=== PATIENT | male | born 1990 | race Two or more races ===

== ENCOUNTER 2017-01-25 13:00 | Emergency (ER) | payer MEDICAID ==
[~2017-01-25] VITALS: Ht 165.1 cm; Wt 79.4 kg
[2017-01-25 13:00] VITALS: BP 130/72
[2017-01-25] MEDS ORDERED: IBUPROFEN 600 MG TABLET PO ONE ×2 (13:30→13:32)
== END 2017-01-25 14:46 | disposition home or self-care (01) ==
LOC: ER 13:02
DX: S29.012A Strain of muscle and tendon of back wall of thorax, initial encounter (principal); S80.01XA Contusion of right knee, initial encounter; V43.52XA Car driver injured in collision with other type car in traffic accident, initial encounter; Y93.89 Activity, other specified; Y92.89 Other specified places as the place of occurrence of the external cause; Y99.9 Unspecified external cause status
CPT/HCPCS: 73564-TC; A4606; Z7610

== ENCOUNTER 2017-11-19 13:35 | Emergency (ER) | payer MEDICAID ==
[~2017-11-19] VITALS: Ht 152.4 cm; Wt 52.2 kg
[2017-11-19 13:39] VITALS: BP 133/79
[2017-11-19] MEDS ORDERED: IBUPROFEN 600 MG TABLET PO ONE ×2 (13:59→14:00)
[2017-11-19] MEDS ORDERED: HYDROCODONE/APAP 10/325MG 1 EA TABLET ONE (13:59)
[2017-11-19] MEDS ORDERED: HYDROCODONE/APAP 10/325MG 1 EA TABLET PO ONE (14:00)
--- NOTE | 2017-11-19 14:18 | NUR ---
XRAY AT BS
== END 2017-11-19 15:18 | disposition home or self-care (01) ==
LOC: ER 13:38
DX: S83.91XA Sprain of unspecified site of right knee, initial encounter (principal); X58.XXXA Exposure to other specified factors, initial encounter; Y93.01 Activity, walking, marching and hiking; Y92.832 Beach as the place of occurrence of the external cause; Y99.8 Other external cause status
CPT/HCPCS: 73562; A4606; Z7610

== ENCOUNTER 2017-11-26 21:56 | Emergency (ER) | payer MEDICAID ==
[~2017-11-26] VITALS: Ht 162.6 cm; Wt 72.6 kg
[2017-11-26 22:37] VITALS: BP 133/78
--- NOTE | 2017-11-27 01:24 | NUR ---
PT TO ER BED 09 VIA WC.
[2017-11-27] MEDS ORDERED: KETOROLAC TROMETHAMINE INJ 60 MG/2 ML VIAL IM ONE ×2 (01:30→01:34)
== END 2017-11-27 01:54 | disposition home or self-care (01) ==
LOC: ER 21:57
DX: M10.9 Gout, unspecified (principal)
CPT/HCPCS: 96372; 99283; A4606; J1885; Z7610

== ENCOUNTER 2017-11-28 02:11 | Emergency (ER) | payer MEDICAID ==
[~2017-11-28] VITALS: Ht 157.5 cm; Wt 78.0 kg
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
--- NOTE | 2017-11-28 02:49 | NUR ---
PT REC'D AN ICE PACK AND LEFT FOR CT VIA [facility].
[2017-11-28] MEDS ORDERED: HYDROCODONE/APAP 5/325MG 1 EACH TABLET ONE (04:07)
--- NOTE | 2017-11-28 04:29 | NUR ---
Patient discharged to home in stable condition. Written and verbal after care instructions given. Patient verbalizes understanding of instruction. Patient ambulatory with a steady gait.
[2017-11-28 04:30] VITALS: BP 117/69
[2017-11-28] MEDS ORDERED: HYDROCODONE/APAP 5/325MG 1 EACH TABLET PO ONE (04:30)
== END 2017-11-28 04:31 | disposition home or self-care (01) ==
LOC: ER 02:11
DX: S06.9X1A Unspecified intracranial injury with loss of consciousness of 30 minutes or less, initial encounter (principal); Y04.2XXA Assault by strike against or bumped into by another person, initial encounter; Y93.89 Activity, other specified; Y92.89 Other specified places as the place of occurrence of the external cause; Y99.8 Other external cause status
CPT/HCPCS: 70450; 99284; A4606; Z7610

== ENCOUNTER 2018-03-05 12:54 | Emergency (ER) | payer MEDICAID ==
[~2018-03-05] VITALS: Ht 162.6 cm; Wt 74.8 kg
--- NOTE | 2018-03-05 13:13 | NUR ---
ERMD AT BEDSIDE
[2018-03-05] MEDS ORDERED: KETOROLAC TROMETHAMINE INJ 60 MG/2 ML VIAL IM ONE ×2 (13:14→13:30)
[2018-03-05 13:39] VITALS: BP 124/80
--- NOTE | 2018-03-05 13:46 | NUR ---
Patient discharged to home in stable condition. Written and verbal after care instructions given. Patient verbalizes understanding of instruction.
== END 2018-03-05 13:47 | disposition home or self-care (01) ==
LOC: ER 12:55
DX: M10.9 Gout, unspecified (principal)
CPT/HCPCS: 73610; 96372; 99284; A4606; J1885; Z7610

== ENCOUNTER 2021-07-15 09:22 | Emergency (ER) | payer MEDICAID ==
[~2021-07-15] VITALS: Ht 167.6 cm; Wt 83.9 kg
[2021-07-15 09:32] VITALS: BP 143/74
--- NOTE | 2021-07-15 09:45 | NUR ---
FROM HOME R THUMB PAIN AND SWELLING, SINCE TUESDAY. THROBING PAIN RADIATING UP THE ARM. PAIN SCALE 10 . NOT RELEIVED BY TYLENOL.
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
--- NOTE | 2021-07-15 10:00 | NUR ---
AWAITING EVALUATION BY ER PROVIDER.
[2021-07-15] MEDS ORDERED: IBUPROFEN 400 MG TABLET ONE (10:39)
[2021-07-15] MEDS: IBUPROFEN 400 MG TABLET PO ONE (10:41)
[2021-07-15] MEDS ORDERED: CLIN300C12 PO (11:26)
[2021-07-15] MEDS ORDERED: TDAP [DIPH/PERTUSSIS/TET] 0.5 ML VIAL IM ONE (11:35)
[2021-07-15] MEDS: TDAP [DIPH/PERTUSSIS/TET] 0.5 ML VIAL IM ONE (11:36)
--- NOTE | 2021-07-15 12:38 | NUR ---
Patient discharged to home in stable condition. Written and verbal after care instructions given. Patient verbalizes understanding of instruction.
== END 2021-07-15 12:39 | disposition home or self-care (01) ==
LOC: ER 09:24
DX: S61.001A Unspecified open wound of right thumb without damage to nail, initial encounter (principal); M10.9 Gout, unspecified; Z79.899 Other long term (current) drug therapy; W23.0XXA Caught, crushed, jammed, or pinched between moving objects, initial encounter; Y93.89 Activity, other specified; Y92.89 Other specified places as the place of occurrence of the external cause; Y99.8 Other external cause status
CPT/HCPCS: 73140-TC; 90715

== ENCOUNTER 2022-03-20 16:32 | Emergency (ER) | payer MEDICAID ==
[~2022-03-20] VITALS: Ht 157.5 cm; Wt 57.6 kg
[~2022-03-20 16:32] MED LIST: CLIN300C12 PO
[2022-03-20] MEDS ORDERED: KETOROLAC TROMETHAMINE INJ 30 MG/ML VIAL ONE (17:21)
[2022-03-20] MEDS ORDERED: TDAP [DIPH/PERTUSSIS/TET] 0.5 ML VIAL IM ONE ×2 (17:23→17:30)
[2022-03-20] MEDS ORDERED: LIDOCAINE 2%-EPI 1:100,000 30 ML VIAL TP ONE (17:30)
[2022-03-20] MEDS ORDERED: KETOROLAC TROMETHAMINE INJ 30 MG/ML VIAL IM ONE (17:30)
[2022-03-20] MEDS ORDERED: LIDOCAINE 1%-EPI 1:100,000 20 ML VIAL ONE (17:59)
[2022-03-20] MEDS ORDERED: BACI3.5O23 TOP (18:46)
[2022-03-20 19:31] VITALS: BP 110/77
--- NOTE | 2022-03-20 19:31 | NUR ---
Patient discharged to home in stable condition. Written and verbal after care instructions given. Patient verbalizes understanding of instruction.
== END 2022-03-20 19:31 | disposition home or self-care (01) ==
LOC: ER 16:34
DX: S91.312A Laceration without foreign body, left foot, initial encounter (principal); Z87.39 Personal history of other diseases of the musculoskeletal system and connective tissue; Z79.899 Other long term (current) drug therapy; W26.0XXA Contact with knife, initial encounter; Y93.89 Activity, other specified; Y92.89 Other specified places as the place of occurrence of the external cause; Y99.8 Other external cause status
CPT/HCPCS: 99284; 12002; 90471; 90715; 96372; J1885; A6403; J3490

== ENCOUNTER 2022-03-28 11:49 | Emergency (ER) | payer MEDICAID ==
[~2022-03-28] VITALS: Ht 157.5 cm; Wt 58.1 kg
[~2022-03-28 11:49] MED LIST changes: +BACI3.5O23 TOP
[2022-03-28 12:01] VITALS: BP 105/62
--- NOTE | 2022-03-28 13:20 | NUR ---
sutures removed; no bleeding nor s/sx of infection noted on affected area. pt has no complaint of pain nor discomfort.
--- NOTE | 2022-03-28 13:26 | NUR ---
Patient discharged to home in stable condition. Written and verbal after care instructions given. Patient verbalizes understanding of instruction.
== END 2022-03-28 13:27 | disposition home or self-care (01) ==
LOC: ER 11:53
DX: Z48.02 Encounter for removal of sutures (principal); S91.312D Laceration without foreign body, left foot, subsequent encounter; Z79.899 Other long term (current) drug therapy; W26.0XXD Contact with knife, subsequent encounter